=== PATIENT | male | born 1985 | race African-American/Black ===

== ENCOUNTER 2017-04-12 22:09 | Emergency (ER) | payer SELFPAY ==
[~2017-04-12] VITALS: Ht 170.2 cm; Wt 71.2 kg
== END 2017-04-13 00:45 | disposition short-term general hospital (02) ==
LOC: ER 22:09
DX: N13.2 Hydronephrosis with renal and ureteral calculous obstruction (principal); F17.210 Nicotine dependence, cigarettes, uncomplicated
CPT/HCPCS: J1885

== ENCOUNTER 2017-04-16 07:50 | Emergency (ER) | payer SELFPAY ==
[~2017-04-16] VITALS: Ht 170.2 cm; Wt 70.8 kg
[2017-04-16] MEDS ORDERED: CIPRO500 MG PO (10:48)
[2017-04-16] MEDS ORDERED: NORCO 325-5 MG1 TAB PO (10:49)
== END 2017-04-16 09:45 | disposition short-term general hospital (02) ==
LOC: ER 07:50 → LAB 07:51 → ER 07:51
DX: K21.9 Gastro-esophageal reflux disease without esophagitis (principal); Z87.442 Personal history of urinary calculi; F17.200 Nicotine dependence, unspecified, uncomplicated